=== PATIENT | female | born 1940 | race African-American/Black ===

== ENCOUNTER 2016-07-29 23:44 | Inpatient (IN) | payer OTHER, BC ==
[~2016-07-29] VITALS: Ht 170.2 cm; Wt 44.9 kg
[~2016-07-29 23:44] MED LIST: AMLODIPINE BESYL5 MG PO; ARICEPT10 MG PO; BACTRIM,SEPT1 TABLET PO; CALCIUM 600 +1 EAC2 PO; CALCIUM 600 +1 EACH PO; DAILY VALUE1 EACH PO; DONEPEZIL HCL10 MG PO; FLONASE16 G1 BOTH NARES; FLOVENT DISKUS1 DIS2 IH; FLUTICASONE PRO16 GM; GLUCOPHAGE1000 MG PO; HYDROCHLOROTH12.5 M1; KEFLEX500 MG PO; KLONOPIN0.5 M1 PO; LEVAQUIN500 MG PO; LEVOTHYROXINE50 MCG PO; LISINOPRIL10 MG PO; MOTRIN800 MG PO; MULTIVITAMIN1 EAC2 PO; NAMENDA10 MG PO; NORVASC5 MG PO; PRAVACHOL40 MG PO; PRAVASTATIN SOD40 MG PO; PROMETHAZINE HC25 M1 PO; REQUIP0.25 MG PO; RISPERDAL0.5 MG; RISPERIDONE0.25 MG; ROPINIROLE HC0.25 MG PO; SERTRALINE HCL100 MG PO; SERTRALINE HCL50 MG; SYNTHROID50 MCG PO; TYLENOL REGULA325 MG PO; VENTOLIN HFA18 GM IH; ZESTRIL,PRINIVI10 M1; ZESTRIL10 MG PO; ZOLOFT100 MG PO
[2016-07-30 00:14] LABS: EOSINOPHIL (%) 2.9 % (0-5); EOSINOPHIL COUNT 0.2 K/uL (0-0.3); HEMATOCRIT 35.7 % (36.0-46.0); IMMATURE GRANULOCYTE (%) 0.2 % (0.0-0.7); INSTRUMENT ABS NEUTROPHIL CT 3.7 K/uL; LYMPHOCYTE COUNT 2.3 K/uL (1.0-2.8); MCH 26.3 PG (29.0-34.0); MCHC 30.8 G/DL (30.0-36.0); MCV 85.2 FL (83-99); MONOCYTE (%) 6.9 % (3-12); MONOCYTE COUNT 0.5 K/uL (0-0.8); NEUTROPHIL (%) 55.4 % (45-76); NEUTROPHIL COUNT 3.7 K/uL (1.8-6.4); PLATELET COUNT 261 K/uL (156-360); RBC DIS.WIDTH-CV 15.1 % (11.8-14.6); RBC DIS.WIDTH-SD 47.2 % (39-53); RED BLOOD COUNT 4.19 M/uL (3.80-5.20); WHITE BLOOD COUNT 6.6 K/uL (4.1-10.2)
[2016-07-30 00:25] LABS: CHLORIDE 105 mEq/L (99-109); POTASSIUM 3.8 mEq/L (3.7-5.4); SODIUM 140 mEq/L (136-147)
[2016-07-30 00:27] LABS: GLUCOSE 140 mg/dL (70-99)
[2016-07-30 00:29] LABS: ANION GAP 10 MEQ/L (2-14); TOTAL BILIRUBIN 0.3 mg/dL (0.0-1.0)
[2016-07-30 00:31] LABS: ALKALINE PHOSPHATASE 194 IU/L (3-129); GFR ESTIMATE (CALCULATED) 56 mL/min/
[2016-07-30 00:32] LABS: UREA NITROGEN (BUN) 15 mg/dL (9-23)
[2016-07-30] MEDS ORDERED: CRANBERRY450 M3 PO (01:24)
[2016-07-30] MEDS ORDERED: TYLENOL REGULA325 MG PO ×2 (01:26→01:28)
[2016-07-30] MEDS ORDERED: SILTUSSIN100 MG/51 PO (01:28)
[2016-07-30 07:26] LABS: POINT-OF-CARE METER ID UU13113702
[2016-07-30 15:06] VITALS: BP 168/79
[2016-07-30 16:58] LABS: ADD MIUA? YES; BILIRUBIN NEGATIVE; BLOOD NEGATIVE; COLOR YELLOW ((YELLOW)); GLUCOSE (STRIP) NEGATIVE; KETONES NEGATIVE; LEUKOCYTES TRACE; NITRITE NEGATIVE; PROTEIN (STRIP) NEGATIVE; UROBILINOGEN 0.2 MG/DL (0.2-1.0)
[2016-07-30 17:09] LABS: BACTERIA NONE SEEN /HPF; EPITHELIAL CELLS RARE /HPF; MUCUS TRACE /LPF; RED BLOOD CELLS 0-5 /HPF (0-5); UCUL ADDED? NO; WHITE BLOOD CELLS 0-5 /HPF (0-5)
[2016-07-30 19:52] VITALS: BP 154/74
[2016-07-30 23:28] VITALS: BP 157/74
[2016-07-31 03:46] VITALS: BP 163/79
[2016-07-31 08:00] VITALS: BP 152/77
[2016-07-31 11:19] LABS: POINT-OF-CARE METER ID UU14149397
[2016-07-31 16:01] VITALS: BP 139/67
[2016-07-31 16:53] LABS: POINT-OF-CARE METER ID UU14188577
[2016-07-31 23:35] VITALS: BP 135/62
[2016-08-01 07:11] LABS: POINT-OF-CARE METER ID UU14149397
[2016-08-01 07:50] VITALS: BP 163/83
[2016-08-01 11:52] LABS: POINT-OF-CARE METER ID UU14188577
[2016-08-01 16:26] VITALS: BP 133/60
[2016-08-01 16:56] LABS: POINT-OF-CARE METER ID UU14188577
[2016-08-01 22:25] LABS: POINT-OF-CARE METER ID UU14188577
[2016-08-01 23:48] VITALS: BP 152/70
[2016-08-02 06:33] LABS: POINT-OF-CARE METER ID UU14149397
[2016-08-02 07:46] VITALS: BP 136/70
[2016-08-02 11:47] LABS: POINT-OF-CARE METER ID UU14188577
[2016-08-02 15:40] VITALS: BP 124/59
[2016-08-02 16:37] LABS: POINT-OF-CARE METER ID UU14188577
[2016-08-02 22:54] LABS: POINT-OF-CARE METER ID UU14188577
[2016-08-02 23:21] VITALS: BP 157/78
[2016-08-03 06:20] LABS: POINT-OF-CARE METER ID UU14149397
[2016-08-03 07:49] VITALS: BP 155/79
[2016-08-03] MEDS ORDERED: LOVENOX30 MG/0.3 SC (13:44)
[2016-08-03] MEDS ORDERED: NOVOLOG PE100 UNITS/ SC (13:47)
== END 2016-08-03 15:59 | DRG 563 ==
LOC: EME 23:44 → EDOF 07-30 03:35 → 3EAST 07-30 03:35
PROVIDERS: Emergency Medicine; Internal Medicine
PROC: 0QSGXZZ Reposition Right Tibia, External Approach (ICD-10-PCS; principal; 2016-07-31)
DX: S82.251A Displaced comminuted fracture of shaft of right tibia, initial encounter for closed fracture (principal); E11.9 Type 2 diabetes mellitus without complications; G30.9 Alzheimer's disease, unspecified; I10 Essential (primary) hypertension; F02.80 Dementia in other diseases classified elsewhere, unspecified severity, without behavioral disturbance, psychotic disturbance, mood disturbance, and anxiety; S82.831A Other fracture of upper and lower end of right fibula, initial encounter for closed fracture; W19.XXXA Unspecified fall, initial encounter; Y92.199 Unspecified place in other specified residential institution as the place of occurrence of the external cause; E03.9 Hypothyroidism, unspecified; Z79.84 Long term (current) use of oral hypoglycemic drugs; M81.0 Age-related osteoporosis without current pathological fracture
CPT/HCPCS: 71010; 72170; 73560; 73590; 73700; 80053; 81003; 82948; 85025; 97530 GP; 99281; 99285; J1650; J1815; J2270

== ENCOUNTER 2017-07-05 21:42 | Inpatient (IN) | payer OTHER, BC ==
[~2017-07-05] VITALS: Ht 170.2 cm; Wt 75.5 kg
[~2017-07-05 21:42] MED LIST changes: +CRANBERRY450 M3 PO; +LOVENOX30 MG/0.3 SC; +NOVOLOG PE100 UNITS/ SC; +SILTUSSIN100 MG/51 PO
[2017-07-05 22:51] LABS: HEMATOCRIT 34.7 % (36.0-46.0); HEMOGLOBIN 11.2 G/DL (11.9-15.5); MCH 26.3 PG (29.0-34.0); MCHC 32.3 G/DL (30.0-36.0); MCV 81.5 FL (83-99); PLATELET COUNT 236 K/uL (156-360); RBC DIS.WIDTH-CV 16.4 % (11.8-14.6); RED BLOOD COUNT 4.26 M/uL (3.80-5.20); WHITE BLOOD COUNT 6.1 K/uL (4.1-10.2)
[2017-07-05 23:13] LABS: TROP-I INTERPRETATION NEGATIVE; TROPONIN-I < 0.01 ng/mL (0.0-0.30)
[2017-07-05 23:18] LABS: CHLORIDE 105 MEQ/L (99-109); POTASSIUM 3.9 MEQ/L (3.7-5.4); SODIUM 139 MEQ/L (136-147); TOTAL BILIRUBIN 0.2 MG/DL (0.0-1.0)
[2017-07-05 23:24] LABS: ALKALINE PHOSPHATASE 71 IU/L (3-129); ALT (GPT) 10 IU/L (3-49); AST (GOT) 11 IU/L (2-34); CREATININE 1.3 MG/DL (0.6-1.3); GFR ESTIMATE (CALCULATED) 51 mL/min/; GLUCOSE 123 mg/dL (70-99); LIPASE 25 U/L (1.0-51.0); TOTAL PROTEIN 7.4 G/DL (6.4-8.3); UREA NITROGEN (BUN) 24 mg/dL (9-23)
[2017-07-06 01:47] LABS: APPEARANCE SL.HAZY ((CLEAR)); BILIRUBIN NEGATIVE; BLOOD MODERATE; COLOR YELLOW ((YELLOW)); GLUCOSE (STRIP) NEGATIVE; KETONES NEGATIVE; LEUKOCYTES LARGE; NITRITE NEGATIVE; PROTEIN (STRIP) NEGATIVE; SPECIFIC GRAVITY 1.014 (1.000-1.030); UROBILINOGEN 0.2 MG/DL (0.2-1.0)
[2017-07-06 01:50] LABS: BACTERIA RARE /HPF; EPITHELIAL CELLS 1+ /HPF; MUCUS TRACE /LPF; UCUL ADDED? YES; WHITE BLOOD CELLS TNTC /HPF (0-5)
[2017-07-06] MEDS ORDERED: LEVO-T50 MCG PO (11:25)
[2017-07-06] MEDS ORDERED: NORVASC10 MG PO (11:26)
[2017-07-06] MEDS ORDERED: PRINIVIL10 MG PO ×2 (11:26→11:29)
[2017-07-06] MEDS ORDERED: NAMENDA10 MG PO (11:27)
[2017-07-06] MEDS ORDERED: DAILY VITE1 EAC1 PO (11:27)
[2017-07-06] MEDS ORDERED: METFORMIN HCL500 MG PO (11:28)
[2017-07-06] MEDS ORDERED: LOW DOSE ASPIRI81 M1 PO (11:28)
[2017-07-06] MEDS ORDERED: ZOLOFT100 MG PO (11:28)
[2017-07-06] MEDS ORDERED: CALCIUM 600 +1 EA17 PO (11:29)
[2017-07-06] MEDS ORDERED: TRAZODONE HCL50 MG PO (11:30)
[2017-07-06] MEDS ORDERED: REQUIP0.25 MG PO (11:30)
[2017-07-06] MEDS ORDERED: ARICEPT10 MG PO (11:30)
[2017-07-06] MEDS ORDERED: TYLENOL REGULA325 MG PO (11:31)
[2017-07-06] MEDS ORDERED: CALCIUM500 M4 PO (11:32)
[2017-07-06] MEDS ORDERED: TRAMADOL HCL50 MG PO (11:32)
[2017-07-06 17:23] VITALS: BP 174/76
[2017-07-06 20:13] VITALS: BP 160/78
[2017-07-06 23:11] VITALS: BP 156/73
[2017-07-07 03:23] VITALS: BP 172/79
[2017-07-07 07:32] VITALS: BP 172/92
[2017-07-07 11:51] VITALS: BP 147/72
[2017-07-07 17:36] VITALS: BP 181/87
[2017-07-08 00:01] VITALS: BP 127/70
[2017-07-08 06:29] LABS: BASOPHIL (%) 0.3 % (0-1); BASOPHIL COUNT 0.1 K/uL (0-0.1); EOSINOPHIL (%) 0.4 % (0-5); EOSINOPHIL COUNT 0.1 K/uL (0-0.3); HEMATOCRIT 30.8 % (36.0-46.0); IMMATURE GRANULOCYTE (%) 0.7 % (0.0-0.7); LYMPHOCYTE (%) 4.5 % (15-42); LYMPHOCYTE COUNT 0.7 K/uL (1.0-2.8); MCH 26.2 PG (29.0-34.0); MCHC 32.5 G/DL (30.0-36.0); MCV 80.8 FL (83-99); MONOCYTE (%) 5.3 % (3-12); MONOCYTE COUNT 0.8 K/uL (0-0.8); NEUTROPHIL (%) 88.8 % (45-76); NEUTROPHIL COUNT 12.9 K/uL (1.8-6.4); PLATELET COUNT 221 K/uL (156-360); RBC DIS.WIDTH-CV 16.3 % (11.8-14.6); RBC DIS.WIDTH-SD 48.3 % (39-53); RED BLOOD COUNT 3.81 M/uL (3.80-5.20); WHITE BLOOD COUNT 14.6 K/uL (4.1-10.2)
[2017-07-08 07:03] LABS: CHLORIDE 105 MEQ/L (99-109); CREATININE 1.5 MG/DL (0.6-1.3); GFR ESTIMATE (CALCULATED) 43 mL/min/; GLUCOSE 100 mg/dL (70-99); SODIUM 137 MEQ/L (136-147); UREA NITROGEN (BUN) 23 mg/dL (9-23)
[2017-07-08 08:15] VITALS: BP 123/84
[2017-07-08 16:28] VITALS: BP 131/70
[2017-07-08 23:47] VITALS: BP 141/71
[2017-07-09 06:17] LABS: BASOPHIL (%) 0.4 % (0-1); EOSINOPHIL (%) 2.6 % (0-5); EOSINOPHIL COUNT 0.2 K/uL (0-0.3); HEMATOCRIT 32.2 % (36.0-46.0); HEMOGLOBIN 10.5 G/DL (11.9-15.5); IMMATURE GRANULOCYTE (%) 0.5 % (0.0-0.7); LYMPHOCYTE (%) 9.7 % (15-42); LYMPHOCYTE COUNT 0.8 K/uL (1.0-2.8); MCH 26.4 PG (29.0-34.0); MCHC 32.6 G/DL (30.0-36.0); MCV 80.9 FL (83-99); MONOCYTE (%) 8.6 % (3-12); MONOCYTE COUNT 0.7 K/uL (0-0.8); NEUTROPHIL (%) 78.2 % (45-76); NEUTROPHIL COUNT 6.6 K/uL (1.8-6.4); PLATELET COUNT 189 K/uL (156-360); RBC DIS.WIDTH-CV 16.4 % (11.8-14.6); RBC DIS.WIDTH-SD 48.1 % (39-53); RED BLOOD COUNT 3.98 M/uL (3.80-5.20); WHITE BLOOD COUNT 8.4 K/uL (4.1-10.2)
[2017-07-09 06:44] LABS: CHLORIDE 108 MEQ/L (99-109); CREATININE 1.4 MG/DL (0.6-1.3); GFR ESTIMATE (CALCULATED) 47 mL/min/; GLUCOSE 116 mg/dL (70-99); POTASSIUM 3.9 MEQ/L (3.7-5.4); SODIUM 139 MEQ/L (136-147); UREA NITROGEN (BUN) 29 mg/dL (9-23)
[2017-07-09 07:27] VITALS: BP 150/69
[2017-07-09 15:40] VITALS: BP 149/71
[2017-07-10 00:14] VITALS: BP 156/77
[2017-07-10 06:05] LABS: BASOPHIL (%) 0.8 % (0-1); BASOPHIL COUNT 0.1 K/uL (0-0.1); EOSINOPHIL (%) 4.1 % (0-5); EOSINOPHIL COUNT 0.3 K/uL (0-0.3); HEMATOCRIT 33.2 % (36.0-46.0); HEMOGLOBIN 10.5 G/DL (11.9-15.5); IMMATURE GRANULOCYTE (%) 0.3 % (0.0-0.7); LYMPHOCYTE (%) 15.1 % (15-42); MCH 25.3 PG (29.0-34.0); MCHC 31.6 G/DL (30.0-36.0); MONOCYTE (%) 11.9 % (3-12); MONOCYTE COUNT 0.8 K/uL (0-0.8); NEUTROPHIL (%) 67.8 % (45-76); NEUTROPHIL COUNT 4.4 K/uL (1.8-6.4); PLATELET COUNT 203 K/uL (156-360); RBC DIS.WIDTH-CV 15.9 % (11.8-14.6); RBC DIS.WIDTH-SD 46.3 % (39-53); RED BLOOD COUNT 4.15 M/uL (3.80-5.20); WHITE BLOOD COUNT 6.6 K/uL (4.1-10.2)
[2017-07-10 06:33] LABS: CHLORIDE 109 MEQ/L (99-109); CREATININE 1.2 MG/DL (0.6-1.3); GFR ESTIMATE (CALCULATED) 56 mL/min/; GLUCOSE 122 mg/dL (70-99); POTASSIUM 3.8 MEQ/L (3.7-5.4); SODIUM 140 MEQ/L (136-147); UREA NITROGEN (BUN) 25 mg/dL (9-23)
[2017-07-10 07:30] VITALS: BP 172/80
[2017-07-10] MEDS ORDERED: CEFTIN500 MG PO (12:36)
== END 2017-07-10 13:50 | disposition home or self-care (01) | DRG 690 ==
LOC: EME 21:42 → EDOF 07-06 03:00 → 2EAST 07-06 03:00 → ENRESERV 07-06 03:22 → 2EAST 07-06 16:42
PROVIDERS: Emergency Medicine; Family Medicine
DX: N13.6 Pyonephrosis (principal); E86.0 Dehydration; B96.20 Unspecified Escherichia coli [E. coli] as the cause of diseases classified elsewhere; I10 Essential (primary) hypertension; E11.9 Type 2 diabetes mellitus without complications; N28.9 Disorder of kidney and ureter, unspecified; E03.9 Hypothyroidism, unspecified; F02.80 Dementia in other diseases classified elsewhere, unspecified severity, without behavioral disturbance, psychotic disturbance, mood disturbance, and anxiety; G30.9 Alzheimer's disease, unspecified; F32.9 Major depressive disorder, single episode, unspecified; Q63.8 Other specified congenital malformations of kidney; Z79.82 Long term (current) use of aspirin; Z79.84 Long term (current) use of oral hypoglycemic drugs
CPT/HCPCS: 70450; 71046; 74018; 74177; 80048; 80053; 81003; 82575; 82948; 83690; 83880; 84484; 84520; 85025; 85027; 87077; 87086; 87186; 87502; 93005; 99281; 99285; C2625; J0696; J0744; J1815; J2405; J3010

== ENCOUNTER 2017-09-06 10:27 | Emergency (ER) | payer OTHER, BC ==
[~2017-09-06] VITALS: Ht 170.2 cm; Wt 75.0 kg
[~2017-09-06 10:27] MED LIST changes: +CALCIUM 600 +1 EA17 PO; +CALCIUM500 M4 PO; +CEFTIN500 MG PO; +DAILY VITE1 EAC1 PO; +LEVO-T50 MCG PO; +LOW DOSE ASPIRI81 M1 PO; +METFORMIN HCL500 MG PO; +NORVASC10 MG PO; +PRINIVIL10 MG PO; +TRAMADOL HCL50 MG PO; +TRAZODONE HCL50 MG PO
[2017-09-06 11:09] LABS: HEMATOCRIT 36.6 % (36.0-46.0); HEMOGLOBIN 11.9 G/DL (11.9-15.5); MCH 25.9 PG (29.0-34.0); MCHC 32.5 G/DL (30.0-36.0); MCV 79.7 FL (83-99); PLATELET COUNT 199 K/uL (156-360); RBC DIS.WIDTH-CV 15.5 % (11.8-14.6); RBC DIS.WIDTH-SD 44.8 % (39-53); RED BLOOD COUNT 4.59 M/uL (3.80-5.20); WHITE BLOOD COUNT 6.7 K/uL (4.1-10.2)
[2017-09-06 11:29] LABS: CHLORIDE 102 mEq/L (99-109); POTASSIUM 3.8 mEq/L (3.7-5.4); SODIUM 139 mEq/L (136-147)
[2017-09-06 11:30] LABS: GLUCOSE 148 mg/dL (70-99)
[2017-09-06 11:34] LABS: CREATININE 1.4 mg/dL (0.6-1.3); GFR ESTIMATE (CALCULATED) 47 mL/min/
[2017-09-06 11:35] LABS: UREA NITROGEN (BUN) 22 mg/dL (9-23)
[2017-09-06 12:42] LABS: APPEARANCE CLOUDY ((CLEAR)); BILIRUBIN NEGATIVE; BLOOD SMALL; COLOR YELLOW ((YELLOW)); GLUCOSE (STRIP) NEGATIVE; KETONES NEGATIVE; LEUKOCYTES LARGE; NITRITE NEGATIVE; PROTEIN (STRIP) 30; SPECIFIC GRAVITY 1.013 (1.000-1.030); UROBILINOGEN 0.2 MG/DL (0.2-1.0)
[2017-09-06 13:03] LABS: BACTERIA 1+ /HPF; EPITHELIAL CELLS 1+ /HPF; MUCUS TRACE /LPF; RED BLOOD CELLS 15-20 /HPF (0-5); UCUL ADDED? YES; WHITE BLOOD CELLS 30-40 /HPF (0-5)
[2017-09-06] MEDS ORDERED: ZOFRAN4 MG PO (14:24)
[2017-09-06] MEDS ORDERED: BACTRIM,SEPT1 TABLET PO (14:24)
[2017-09-06 16:10] VITALS: BP 114/70
== END 2017-09-06 16:10 | disposition home or self-care (01) ==
LOC: EME 10:27
PROVIDERS: Emergency Medicine
DX: N39.0 Urinary tract infection, site not specified (principal); F03.90 Unspecified dementia, unspecified severity, without behavioral disturbance, psychotic disturbance, mood disturbance, and anxiety; I10 Essential (primary) hypertension; E78.5 Hyperlipidemia, unspecified; E11.9 Type 2 diabetes mellitus without complications; G20 Parkinson's disease; E03.9 Hypothyroidism, unspecified; M81.0 Age-related osteoporosis without current pathological fracture; F32.9 Major depressive disorder, single episode, unspecified; Z87.442 Personal history of urinary calculi; Z79.84 Long term (current) use of oral hypoglycemic drugs; Z79.82 Long term (current) use of aspirin
CPT/HCPCS: 80048; 81003; 85027; 87077; 87086 GA; 87186; 99281; 99284; J0696; J2405; J7030